=== PATIENT | female | born 1955 | race Caucasian/White ===

== ENCOUNTER → 2017-02-22 | Outpatient (CLI) | payer OTHER, BC ==
--- NOTE | 2017-02-23 08:46 | DI ---
History: Right shoulder pain Comparison: None Findings: Anterior osteophyte formation from the level of 4 through C7. Intervertebral disc space narrowing C5-6 and C6-7. No compression fracture No spondylolisthesis. No prevertebral soft tissue swelling Lateral masses align. Dense intact. Impression: Endplate osteophyte formation C4-C7 colon with large anterior osteophytes at the levels of C5, C6, an d C7 Intervertebral disc space narrowing C5-6 and C6-7
--- NOTE | 2017-02-23 08:48 | DI ---
History: Right shoulder pain Comparison: None Findings: Mild osteophyte formation around the glenohumeral joint, and acromioclavicular joint. No fracture No malalignment No destructive changes Impression: Mild degenerative changes. No acute injury
== END ==
LOC: RAD 15:17
PROVIDERS: ATTEND Obstetrics & Gynecology Gynecology
DX: M25.511 Pain in right shoulder (principal); M19.011 Primary osteoarthritis, right shoulder; M48.02 Spinal stenosis, cervical region
CPT/HCPCS: 72040; 73030